=== PATIENT | male | born 1960 | race Caucasian/White ===

== ENCOUNTER 2020-01-27 15:12 | Inpatient (IN) | payer MEDICAID, SELFPAY ==
--- NOTE | 2020-01-27 | CT_ITS ---
EXAMINATION: CT HEAD WITHOUT AND WITH CONTRAST CLINICAL INFORMATION: Intracranial pathology. COMPARISON: None available. TECHNIQUE: Contiguous axial imaging was performed from the skull base to vertex both without and with intravenous administration of contrast following the administration of 85 mL Omnipaque [address] examination was performed using dose optimization techniques as appropriate, variously including the following: *Automated exposure control. *Adjustment of mA and/or kV according to patient size (this includes techniques or standardized protocols for targeted exams where dose is matched to indication/reason for exam; i.e. extremities or head). *Use of iterative reconstruction technique. DLP: 1482 mGy-cm FINDINGS: There is no evidence of acute intracranial hemorrhage or edematous territorial infarction. Scattered hypoattenuation in the periventricular and deep white matter are consistent with mild to moderate microangiopathy. Hope-white matter differentiation is preserved. Proportional prominence of the ventricles and sulcal spaces. No evidence for obstructive hydrocephalus. No abnormal mass effect or midline shift. Normal positioning of the cerebellar tonsils. No extra-axial fluid collections. Developmental venous anomaly within the anterior right frontal lobe. Otherwise, no abnormal intracranial enhancement. No acute soft tissue or osseous abnormalities. The mastoid air cells and paranasal sinuses are clear. Bilateral lens extractions. CT/CT head/brain wo/w con IMPRESSION: 1. No evidence of acute intracranial hemorrhage or edematous territorial infarction. 2. No abnormal intracranial enhancement. 3. Mild to moderate underlying microangiopathy and generalized cerebral volume loss.
[2020-01-27 15:27] VITALS: BP 114/43; PULSE 73; RESP 18; TEMP 36.6; BMI 28.8
--- NOTE | 2020-01-27 15:46 | ED.AMS ---
HPI - Altered Mental Status General Chief Complaint: Altered Mental Status Stated Complaint: STROKE LIKE Time Seen by Provider: 01/27/20 15:30 Source: patient Mode of arrival: ambulatory Limitations: no limitations History of Present Illness HPI narrative: Patient presents to ED for seizure-like activity in the car. Dr. Christine, who is patient's associate, states that she was driving and suddenly in the car patient put his head back, eyes started rolling back in his head, and patient started shaking. She states this lasted for 1 minutes so she drove and brought patient to the ED for evaluation. Patient presently denies any headache, slurred speech, loss of vision, paralysis of extremies, chest pain, shortness of breath, dizziness or facial droop. Related Data Home Medications Medication Instructions Recorded Confirmed diphenhydramine HCl [Benadryl] 50 mg PO DAILY 01/27/20 01/27/20 ferrous sulfate 325 mg PO DAILY 01/27/20 01/27/20 furosemide 40 mg PO DAILY 01/27/20 01/27/20 nadolol 20 mg PO DAILY 01/27/20 01/27/20 propranolol 40 mg PO DAILY 01/27/20 01/27/20 spironolactone 100 mg PO DAILY 01/27/20 01/27/20 Allergies Allergy/AdvReac Type Severity Reaction Status Date / Time Romero Coleman Allergy Anaphylaxis Verified 01/27/20 15:38 Review of Systems Review of Systems: Yes all other systems are reviewed and are negative Constitutional: Constitutional: Reports as per HPI and Reports no additional constitutional complaints Eyes: Eyes: Reports as per HPI and Reports no additional eye complaints ENT: Reports system reviewed and no additional complaints, except as documented and Reports as per HPI Cardiovascular: Cardiovascular: Reports as per HPI and Reports no additional cardiovascular complaints Respiratory: Respiratory: Reports as per HPI and Reports no additional respiratory complaints Gastrointestinal: Gastrointestinal: Reports as per HPI and Reports no additional gastrointestinal complaints Musculoskeletal: Musculoskeletal: Reports no additional musculoskeletal complaints and Reports as per HPI Neurologic: Reports system reviewed and no additional complaints, except as documented, Reports as per HPI and Reports Abnormal speech present Psychiatric: Psychiatric: Reports no additional psychiatric complaints and Reports as per HPI [facility] Social History Social History Alcohol intake: never Smoking Status: Former smoker Use of substances other than those prescribed or required for medical reasons: Yes Substance Use Type: Marijuana Substance Use Frequency: Daily Advance Directives: No Advance Directives Information Provided: Yes Physical Exam Vital Signs: Vital Signs: Vital Signs Temp Pulse Resp BP Pulse Ox 01/27/20 19:39 75 18 90/48 L 99 01/27/20 19:10 85 22 H 103/60 98 01/27/20 18:00 97.9 F 81 19 111/73 93 01/27/20 15:27 97.9 F 73 18 114/43 L Body Mass Index 28.8 Const: General: cooperative, healthy appearing, comfortable, no acute distress, well developed, alert, awake and Physically active Orientation/consciousness: oriented to person, oriented to place, oriented to time and patient oriented x3 HENMT: Head: Yes normal to inspection and Yes No palpable skull fracture present Eyes: General: appearance normal, both eyes and all related structures Neck: Neck: Yes normal visual inspection, Yes full ROM, Yes no lymphadenopathy and Yes no meningeal signs Chest: Chest palpation & inspection: normal inspection of the chest, normal palpation of entire chest wall and no localized rib tenderness Resp: Effort & Inspection: normal respiratory effort and able to speak in complete sentences Auscultation: clear to auscultation bilaterally, no crackles, no rales, no rhonchi and no wheezes Cardio: Jugular venous distension: no JVD Heart sounds: S1 normal heart sound present and S2 normal heart sound present GI: Inspection: Yes normal to inspection, No abdominal wall ecchymosis and Yes distended ( history of cirrhosis. Ascites) : General: No CVA tenderness and Yes no CVA tenderness Back/Spine/Pelvis: Back: no CVA tenderness, No CVA tenderness and No back tenderness Skin: Other: jaundice. Icterus Neuro: Other: negative for facial droop. Negative pronator drift. Speech is normal. Motor, neuro, and vascular exam of all extremities are intact. Equal strength in all extremities. negative rhomberg. General: oriented to person, oriented to place, oriented to time, patient oriented x3, gait normal, tone normal, no meningeal signs and CN's II-XI intact bilaterally Cranial nerves: Yes CN's II-XII intact bilaterally Speech: Abnormal speech present Course Course Course Narrative: Patient presently does not have any neuro deficits. Glucose POC was 58 which is considered hypoglycemia and because of patient having moment of seizure-like altered mental status. Presently patient is alert oriented x3. Spoke with on his associates who states patient has not eaten for many days. She states patient does not have a history of diabetes. Will do basic labs to evaluate electrolytes including glucose. Was sent for UA to rule out any UTI. Patient also be given D5 half NS. Patient is not having a stroke. NIH Score is 0. Reevaluation(s) Reevaluation #1: Patient POC is 81 even while receiving D5 half NS. Patient will be admitted to the hospital for hypoglycemia induced seizure. Patient presently is alert oriented x3 Time: 19:28 Reevaluation #2: Dr. Stallings came and evaluated patient and recommended giving patient albumin for his blood pressure. Dr. Stallings states hold the second D5 bag of fluids. Time: 20:07 MDM - Altered Mental Status Lab Data Result diagrams: 01/27/20 15:56 01/27/20 15:56 Labs: Lab Results 01/27/20 01/27/20 01/27/20 Range/Units 15:56 15:56 15:56 WBC 8.2 (4.8-10.8) X10*3/uL RBC 2.85 L (4.60-5.80) X10*6/uL Hgb 9.8 L (14.0-18.0) g/dl Hct 28.8 L (42-52) % MCV 101.1 H (80-98) fL MCH 34.4 H (27.0-33.0) pg MCHC 34.0 (31.0-36.0) g/dl RDW 17.2 H (11.0-16.0) % Plt Count 102 L (160-400) X10*3/uL MPV 9.9 (9.4-12.4) fL Immature Gran % (Auto) 0.4 (0.0-0.4) % Neut % (Auto) 79.4 H (45-73) % Lymph % (Auto) 6.5 L (20-40) % [place] % (Auto) 11.4 H (2-11) % Eos % (Auto) 1.7 (0-4) % Baso % (Auto) 0.6 (0-2) % Lymph # (Auto) 0.5 L (1.2-4.9) X10*3/uL [place] # (Auto) 0.9 (0.1-1.2) X10*3/uL Eos # (Auto) 0.1 (0.0-0.4) X10*3/uL Baso # (Auto) 0.1 (0.0-0.2) X10*3/uL Abs Immat Gran (auto) 0.03 (0.00-0.03) X10*3/uL Absolute Neuts (auto) 6.5 (2.0-8.3) X10*3/uL Absolute Nucleated RBC 0.000 (0.0-0.012) X10*3/uL Nucleated RBC % (auto) 0.0 (0.0-0.2) /100WBC Smear Tech's Comments VERIFIED PT 17.7 H (10.8-13.0) SEC INR 1.5 H (0.9-1.1) APTT (24.1-38.0) SEC Sodium 129 L (135-145) mmol/L Potassium 3.8 (3.3-5.1) mmol/l Chloride 89 L (96-108) mmol/L Carbon Dioxide 22 (22-29) mmol/L Anion Gap 22 H (12-20) BUN 23 H (9-16) mg/dL Creatinine 1.29 (0.5-1.4) mg/dL Estim Creat Clear Calc 68.2 Estimated GFR 57 POC Glucose (60-115) mg/dL Random Glucose 67 (60-115) mg/dL Calcium 7.4 L (8.4-10.2) mg/dL Total Bilirubin 9.6 H (0.0-1.0) mg/dL Direct Bilirubin 6.5 H (0.0-0.5) mg/dL AST 109 H (5-37) U/L ALT 28 (0-40) U/L Alkaline Phosphatase 149 H (39-117) U/L Total Protein 7.8 (6.5-8.0) g/dL Albumin 2.6 L (3.5-5.0) g/dL Lipase 34 (8-78) U/L Urine Color Urine Appearance Urine pH (5.0-8.0) Ur Specific [place] (1.005-1.025) Urine Protein (NEG-TRACE) MG/DL Urine Glucose (UA) (NEG) MG/DL Urine Ketones (NEG) MG/DL Urine Blood (NEG) Urine Nitrite (NEG) Ur Leukocyte Esterase (NEG) Urine RBC (0) /HPF Urine WBC (0-4) /HPF Ur Squamous Epith Cells /LPF Urine Bacteria /LPF Hyaline Casts /LPF 01/27/20 01/27/20 01/27/20 Range/Units 15:56 17:20 19:10 WBC (4.8-10.8) X10*3/uL RBC (4.60-5.80) X10*6/uL Hgb (14.0-18.0) g/dl Hct (42-52) % MCV (80-98) fL MCH (27.0-33.0) pg MCHC (31.0-36.0) g/dl RDW (11.0-16.0) % Plt Count (160-400) X10*3/uL MPV (9.4-12.4) fL Immature Gran % (Auto) (0.0-0.4) % Neut % (Auto) (45-73) % Lymph % (Auto) (20-40) % [place] % (Auto) (2-11) % Eos % (Auto) (0-4) % Baso % (Auto) (0-2) % Lymph # (Auto) (1.2-4.9) X10*3/uL [place] # (Auto) (0.1-1.2) X10*3/uL Eos # (Auto) (0.0-0.4) X10*3/uL Baso # (Auto) (0.0-0.2) X10*3/uL Abs Immat Gran (auto) (0.00-0.03) X10*3/uL Absolute Neuts (auto) (2.0-8.3) X10*3/uL Absolute Nucleated RBC (0.0-0.012) X10*3/uL Nucleated RBC % (auto) (0.0-0.2) /100WBC Smear Tech's Comments PT (10.8-13.0) SEC INR (0.9-1.1) APTT 34.5 (24.1-38.0) SEC Sodium (135-145) mmol/L Potassium (3.3-5.1) mmol/l Chloride (96-108) mmol/L Carbon Dioxide (22-29) mmol/L Anion Gap (12-20) BUN (9-16) mg/dL Creatinine (0.5-1.4) mg/dL Estim Creat Clear Calc Estimated GFR POC Glucose 81 (60-115) mg/dL Random Glucose (60-115) mg/dL Calcium (8.4-10.2) mg/dL Total Bilirubin (0.0-1.0) mg/dL Direct Bilirubin (0.0-0.5) mg/dL AST (5-37) U/L ALT (0-40) U/L Alkaline Phosphatase (39-117) U/L Total Protein (6.5-8.0) g/dL Albumin (3.5-5.0) g/dL Lipase (8-78) U/L Urine Color [place] Urine Appearance CLEAR Urine pH 5.0 (5.0-8.0) Ur Specific [place] 1.025 (1.005-1.025) Urine Protein TRACE (NEG-TRACE) MG/DL Urine Glucose (UA) 100 H (NEG) MG/DL Urine Ketones 5 (NEG) MG/DL Urine Blood NEG (NEG) Urine Nitrite POS H (NEG) Ur Leukocyte Esterase NEG (NEG) Urine RBC 0 (0) /HPF Urine WBC 0 (0-4) /HPF Ur Squamous Epith Cells NONE /LPF Urine Bacteria 1+ /LPF Hyaline Casts 1-4 /LPF Discharge Plan Discharge Clinical Impression: Hypoglycemia Patient Disposition: Admitted As Inpatient
[2020-01-27] MEDS: Dextrose 5 % and 0.45 % NaCl 1,000 ML 125 ML IVCONT (16:06)
[2020-01-27 16:08] LABS: Basophils Absolute Auto 0.1 X10*3/uL (0.0-0.2); Basophils Percent Auto 0.6 % (0-2); Eosinophils Absolute Auto 0.1 X10*3/uL (0.0-0.4); Eosinophils Percent Auto 1.7 % (0-4); Hematocrit 28.8 % (42-52); Hemoglobin 9.8 g/dl (14.0-18.0); Imm Gran Abs Auto 0.03 X10*3/uL (0.00-0.03); Imm Gran Pct Auto 0.4 % (0.0-0.4); Lymphocytes Absolute Auto 0.5 X10*3/uL (1.2-4.9); Lymphocytes Percent Auto 6.5 % (20-40); MANUAL DIFF FLAG SCAN; Mean Corpuscular Hemoglobin 34.4 pg (27.0-33.0); Mean Corpuscular Volume 101.1 fL (80-98); Mean Platelet Volume 9.9 fL (9.4-12.4); Monocytes Absolute Auto 0.9 X10*3/uL (0.1-1.2); Monocytes Percent Auto 11.4 % (2-11); Neutrophils Absolute Auto 6.5 X10*3/uL (2.0-8.3); Neutrophils Percent Auto 79.4 % (45-73); Platelet Count 102 X10*3/uL (160-400); Red Blood Count 2.85 X10*6/uL (4.60-5.80); Red Cell Distribution Width 17.2 % (11.0-16.0); SCAN SMEAR FLAG 1; White Blood Count 8.2 X10*3/uL (4.8-10.8)
--- NOTE | 2020-01-27 16:13 | PC.NURSE ---
PATIENT A&OX3, IV INSERTED, LABS DRAWN, REHABILITATION TEACHER NSR 70S WITH PVCS, PATIENT IS NOTED TO BE JAUNDICE, ABD FIRM/DISTENDED, IVF RUNNING PER ORDER, POC PERFORMED, SWALLOW PERFORMED-PT PASSED SWALLOW, PT DRANK ORANGE JUICE PER PROVIDER REQUEST, WILL CONTINUE TO MONITOR.
[2020-01-27 16:17] LABS: INTERNATIONAL NORM RATIO 1.5 (0.9-1.1); Prothrombin Time 17.7 SEC (10.8-13.0)
[2020-01-27 16:20] LABS: Partial Thromboplastin Time 34.5 SEC (24.1-38.0)
[2020-01-27 16:27] LABS: SLIDE REVIEW VERIFIED
[2020-01-27 16:41] LABS: Alanine Aminotransferase 28 U/L (0-40); Albumin Level 2.6 g/dL (3.5-5.0); Alkaline Phosphatase 149 U/L (39-117); Anion Gap 22 (12-20); Aspartate Amino Transferase 109 U/L (5-37); Bilirubin Direct 6.5 mg/dL (0.0-0.5); Bilirubin Total 9.6 mg/dL (0.0-1.0); Blood Urea Nitrogen 23 mg/dL (9-16); Calcium 7.4 mg/dL (8.4-10.2); Carbon Dioxide 22 mmol/L (22-29); Chloride 89 mmol/L (96-108); Creatinine Clr Calc Pharmacy 68.2; Estimated Glomerular Filt Rate 57; Glucose Random 67 mg/dL (60-115); Lipase 34 U/L (8-78); Potassium 3.8 mmol/l (3.3-5.1); Sodium 129 mmol/L (135-145); Total Protein 7.8 g/dL (6.5-8.0)
[2020-01-27 17:25] LABS: Glucose, Whole Blood 81 mg/dL (60-115)
--- NOTE | 2020-01-27 17:30 | PC.NURSE ---
after the first 1/2 hour of infusion, this nurse was given a verbal order from provider to increase rate of D5 1/2 NS to infuse rest of the bag over 1 hour.
[2020-01-27 18:00] VITALS: BP 111/73; PULSE 81; RESP 19; TEMP 36.6; O2SAT 93
--- NOTE | 2020-01-27 18:15 | PC.NURSE ---
PT STATES HE USES [facility] [place], WHICH IS NOT IN OUR SYSTEM
[2020-01-27 19:10] VITALS: BP 103/60; PULSE 85; RESP 22; O2SAT 98
--- NOTE | 2020-01-27 19:11 | PC.NURSE ---
patient a&ox3, patient states that he feels sob, patient remains nsr on monitor, o2 sat was 98%, patients lungs diminished, patient currently speaking in full sentences and not appearing sob, will notify provider and continue to monitor.
[2020-01-27 19:38] LABS: Glucose Urine UA 100 MG/DL (NEG); Leukocyte Esterase Urine NEG (NEG); Nitrite Urine POS (NEG); Specific Gravity - Urine 1.025 (1.005-1.025); Urine Blood NEG (NEG); Urine Ketones 5 MG/DL (NEG); Urine Protein TRACE MG/DL (NEG-TRACE)
--- NOTE | 2020-01-27 19:38 | PC.NURSE ---
covid swab performed
[2020-01-27 19:39] VITALS: BP 90/48; PULSE 75; RESP 18; O2SAT 99
[2020-01-27 19:43] LABS: Appearance Urine CLEAR; Color Urine AMBER
[2020-01-27 19:50] LABS: Bacteria Urine 1+ /LPF; RBC Urine 0 /HPF (0); WBC Urine 0 /HPF (0-4)
[2020-01-27] MEDS: Albumin Human 25 % 100 ML IV ×2 (20:08→21:13)
--- NOTE | 2020-01-27 20:11 | PC.NURSE ---
1liter dextrose held per provider request, albumin hanging per order
[2020-01-27 20:23] VITALS: BP 101/58; PULSE 79; RESP 18; TEMP 36.6; O2SAT 100
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
[2020-01-27 20:47] LABS: SARS COV2 PCR INHOUSE NEGATIVE (Negative)
[2020-01-27] MEDS: iohexoL 350 MG/ML 100 ML INFUS..BTL IV (20:57)
--- NOTE | 2020-01-27 20:58 | PC.NURSE ---
called floor to give report, floor will call back per medical secretary receptionist
--- NOTE | 2020-01-27 21:01 | PC.NURSE ---
pt return from ct scan
[2020-01-27 22:23] VITALS: BP 101/60; PULSE 74; RESP 18; TEMP 36.5; O2SAT 99
[2020-01-27] MEDS: cefTRIAXone sodium 1 GM in 0.9 % Sodium Chloride 50 ML IV (22:28)
[2020-01-27 23:14] VITALS: BMI 29.2
[2020-01-28] VITALS (13 sets, daily range): BP systolic 75–109; BP diastolic 37–73; PULSE 75–93; RESP 16–30; TEMP 33.9–35.8; O2SAT 66–98
--- NOTE | 2020-01-28 | XR_ITS ---
EXAMINATION: CHEST 1 VIEW CLINICAL INFORMATION: Enteric tube placement. COMPARISON: None. TECHNIQUE: An AP view of the chest is provided. FINDINGS: The cardiac silhouette is not enlarged. An endotracheal tube is in place. The tip is just within the right mainstem bronchus, approximately 5 to 10 mm below the mayo. An enteric tube is in place. The tip overlies left upper quadrant within the stomach. The mediastinal and hilar contours are unremarkable. Nor are no pneumothoraces. There is a small left pleural effusion. There is nonspecific interstitial prominence throughout both lungs. There is mild spurring about the inferior right humeral head. The osseous structures are otherwise unremarkable. XR/XR chest 1V IMPRESSION: Endotracheal tube in place. The tip is proximally 5 to 10 mm below the [place]o within the right mainstem bronchus. Retraction is recommended. The aforementioned was communicated to Dr. Gardner at 0051 hours. Nonspecific interstitial prominence throughout both lungs. This is age indeterminant, though possibly chronic. A mild amount of vascular congestion cannot be excluded. Small left pleural effusion with left lower lobe atelectasis.
[2020-01-28 00:10] LABS: Glucose, Whole Blood 86 mg/dL (60-115)
--- NOTE | 2020-01-28 00:29 | PM.EVENT ---
Event Note Event Note: Pal priest called around 12 am as patient was found to be in cardiac arrest. Vitals unable to be obtained on scene. Code status determined as full code. instructor adjunct pharmacy technician showed asystole on monitor. CPR started as per protocol. ED physician Dr Rea on scene for intubation. a total of 2 epinephrines IV given and patient ROSC after approximately 6-10 minutes of CPR. Intubated. Contact number: Dr Bonilla called and informed who is the close contact on chart and family physician, reports that parents of the patient live in [place] and are of advanced age, states that as far as she is concerned patient is full code. ICU conference organizer Dr Murillo called. Patient to be transferred to the unit.
--- NOTE | 2020-01-28 00:37 | PC.NURSE ---
Pt up to floor 2230, alert and oriented x4, vss. Admitted for question of seizure activity. Around 0000 heart rate dropping to 30s on tele and pauses noted. This RN to assess pt, found to be unresponsive without pulse. Code blue initiated. (See code notes) Code team at bedside. Pt intubated, sent to icu.
[2020-01-28] MEDS: 0.9 % Sodium Chloride Flush 3 ML SYRINGE IVFLUSH (01:02)
[2020-01-28 02:07] LABS: Hemoglobin 8.8 g/dl (14.0-18.0); NRBC Pct Auto 0.2 /100WBC (0.0-0.2); PLT CLUMP 1; Red Cell Distribution Width 17.2 % (11.0-16.0)
[2020-01-28 02:09] LABS: Hematocrit 26.5 % (42-52); Mean Corpuscular HGB Conc 33.2 g/dl (31.0-36.0); Mean Corpuscular Hemoglobin 35.1 pg (27.0-33.0); Mean Corpuscular Volume 105.6 fL (80-98); Mean Platelet Volume 9.9 fL (9.4-12.4); Platelet Count 125 X10*3/uL (160-400); Red Blood Count 2.51 X10*6/uL (4.60-5.80)
[2020-01-28 02:27] LABS: Base Excess VBG -7.9 mmol/L; HCO3 VBG 19 mmol/L; PCO2 VBG 44 mmhg; PO2 VBG 109 mmhg; pH VBG 7.25 (7.32-7.43)
[2020-01-28 02:38] LABS: Calcium 6.9 mg/dL (8.4-10.2); Phosphorus 6.1 mg/dL (2.7-4.5)
[2020-01-28 02:42] LABS: Anion Gap 24 (12-20); Blood Urea Nitrogen 23 mg/dL (9-16); Calcium 6.9 mg/dL (8.4-10.2); Carbon Dioxide 15 mmol/L (22-29); Chloride 90 mmol/L (96-108); Creatinine Clr Calc Pharmacy 62.4; Estimated Glomerular Filt Rate 51; Glucose Random 128 mg/dL (60-115); Magnesium 1.4 mg/dL (1.6-2.6); Potassium 4.2 mmol/l (3.3-5.1); Sodium 125 mmol/L (135-145)
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
[2020-01-28] MEDS: Magnesium Sulfate/H2O 2 GM/50 ML PIGGYBACK IV (03:27)
[2020-01-28] MEDS: Calcium Gluconate/NaCl,Iso-Osm 2 GM/100 ML PLAST..BAG IV (03:32)
[2020-01-28 03:40] LABS: Toxic Vacuolation PRESENT
[2020-01-28 03:50] LABS: Band Neutrophils Percent 2 % (3-5); Basophils Abs Manual 0.3 X10*3/uL (0.0-0.3); Basophils Percent Manual 3 % (0-1); Eosinophils Absolute Manual 0.2 X10*3/UL (0.0-0.8); Eosinophils Percent Manual 2 % (0-4); Lymphocytes Absolute Manual 0.4 X10*3/uL (0.6-4.8); Lymphocytes Percent Manual 4 % (20-40); Metamyelocytes Absolute 0.1 X10*3/uL; Metamyelocytes Percent 1 %; Monocytes Absolute Manual 0.7 X10*3/uL (0.0-1.2); Monocytes Percent Manual 6 % (2-11); Myelocytes Absolute 0.2 X10*/uL; Myelocytes Percent 2 %; Neutrophils Percent Manual 80 % (45-73); Nucleated Red Blood Cells 2 /100WBC (0-0)
[2020-01-28 03:51] LABS: Polychromasia 1+; RBC Morphology NOTED
[2020-01-28 03:52] LABS: Hypochromasia 1+; Large Platelet PRESENT; Platelet Estimate SLIGHTLY DECREASED (NORMAL); Platelet Morphology Comment NORMAL
[2020-01-28 03:54] LABS: Basophilic Stippling 1+; Macrocytosis 2+
[2020-01-28] MEDS: Morphine Sulfate 4 MG/ML CARTRIDGE IVPUSH (05:36)
--- NOTE | 2020-01-28 06:22 | PM.DDS ---
Discharge Sum: Prov Provider Primary care physician: Unknown Physician <RITA Todd - Last Filed: 01/28/20 06:25> Discharge Sum: Diag Contributing Factors (1) Bradycardic cardiac arrest: (2) Alcoholic cirrhosis: (3) Chronic anemia: (4) Seizure: (5) Hypoglycemia: Discharge Sum: Summary Date and Time Date of admission: 01/27/20 20:23 <RITA Todd - Last Filed: 01/28/20 06:25> Additional Data Attending physician: Dr Jaylon Murillo Patient in [facility] code status with sudden refractory hypoxemia and bradycardia resulting in cardiopulmonary arrest at approximately 6:05 a.m. on my exam, no pulse, no spontaneous respiration, no gag or corneal reflex. Official time of 6:05a.m. Healthcare proxy notified, Pastor Espinoza, patients father [phone]. <RITA Todd - Last Filed: 01/28/20 06:25>
--- NOTE | 2020-01-28 07:05 | PC.NURSE ---
Patient was a cardiac arrest on IMC and transferred to ICU post ROSC. Patient intubated and ventilated, no sedation was required post arrest. Patient with soft blood pressure at 0100 and levophed was started peripherally at 0.05 mcg/kg/min. Central line attempted by PA, large amount of bleeding and line would not advance on wire, pressure dressing applied. Patient was also placed on cooling blanket at this time to begin hypothermic protocol. Target temp reached at 0430. Family and Dr. Geovany Thibodeaux notified by RITA of status. Dr. Thibodeaux and brother Carlos Taylor were updated at bedside and understood the gravity of the prognosis. Dr. Thibodeaux said she would speak to the parents and call us back with an update on code status. Patient required levophed to be titrated up to 0.1 mcg/kg/min. Vent settings remained at 100%. Patient's blood pressure continued to decline as well as oxygen saturation. Dr. Thibodeaux and father Pastor called and made the decision to make patient DNR and EXERCISER status. At 0540 patient was administered 4 mg morphine and extubated. NE was notified at 0530 of plans for terminal wean, spoke with Yogi, reference number [id number]. Patient asystole at 0605, NEDS notitifed of . Spoke with Ava, potential for corneal donation.
--- NOTE | 2020-01-28 07:08 | PM.EVENT ---
Event Note Event Note: I discussed the events involving Mr. Espinoza with Dr. Raymond Stallings last night shortly after his cardiac arrest. At that point, and even at this point, the cause of his cardiac arrest is still undetermined, other than given that it was a bradycardic arrest, it may have been due to hypoxemia, the latter for unclear reasons. The patient was subsequently transferred to the ICU. During the sergeant missile crewman hours, I discussed his situation and management multiple times with RITA Gardner. Ultimately, the family decided on [facility]ICIAL status. The patient was extubated and passed quickly. Time: 30+ min ([id number]).
[2020-01-28 07:46] LABS: Glucose, Whole Blood 58 mg/dL (60-115)
--- NOTE | 2020-01-29 13:29 | PC.NURSE ---
3 bags of personal belongings released to patient's family members- father Pastor Izaguirre Alexis Sr and brother Letty Taylor. Family to be calling [place] home to arrange for services
== END 2020-01-28 06:05 | disposition expired | DRG 641 ==
LOC: HO.ED 20:35 → HO.IMC 20:47 → HO.ICU 01-28 01:05
PROVIDERS: Physician Assistant; Admitting Provider Internal Medicine; Emergency Provider Internal Medicine; Visit Provider Anesthesiology
DX: E16.2 Hypoglycemia, unspecified (principal); K70.30 Alcoholic cirrhosis of liver without ascites; I46.9 Cardiac arrest, cause unspecified; F41.9 Anxiety disorder, unspecified; Z87.820 Personal history of traumatic brain injury; Z20.828 Contact with and (suspected) exposure to other viral communicable diseases; D64.9 Anemia, unspecified; R09.02 Hypoxemia; Z51.5 Encounter for palliative care; Z87.891 Personal history of nicotine dependence; Z79.899 Other long term (current) drug therapy; Z66 Do not resuscitate
CPT/HCPCS: 36415; 70470; 71045; 80048; 80053; 80076; 81001; 82310; 82803; 82947; 83690; 83735; 84100; 85007; 85025; 85027; 85060; 85610; 85730; 87086; 94002; 94003; 96361; 96374; 99285; J0610; J0696; J2270; J3475; P9047; Q9967; U0003